=== PATIENT | male | born 1950 | race Caucasian/White ===

== ENCOUNTER 2023-07-22 20:02 | Inpatient (IN) ==
[2023-07-22] MEDS ORDERED: Dextrose 50% Syringe 50 ml 25 GM/50 ML SYRINGE IV PUSH PRN ×2 (20:06→22:44)
[2023-07-22] MEDS ORDERED: Midazolam 5 mg/5 ml VIAL 1 mg/ml 5 ml VIAL (5 mg) ONE (20:18)
[2023-07-22] MEDS ORDERED: fentaNYL 100 mcg/2 ml 50 MCG/ML VIAL ONE (20:18)
[2023-07-22] MEDS: Insulin Infusion 100unit/100mL 100 UNIT/100 ML BAG IV SCH (20:28)
[2023-07-22] MEDS: Heparin DRIP 25,000 UNITS BAG 25,000 UNITS/250 ML BAG IV SCH (20:29)
[2023-07-22 21:02] LABS: ABS Lymphocytes 0.9 10^3/uL (1.0-4.8); ABS Monocytes 0.6 10^3/uL (0.0-1.1); ABS Neutrophils 8.8 10^3/uL (1.5-7.6); ABS Nucleated RBC 0.01 10^3/ul; Eosinophil % 0.1 %; Hematocrit 27.3 % (38-53); Hemoglobin 9.2 g/dL (13.2-16.3); Lymphocyte % 8.4 %; Mean Corpuscular Hemoglobin 31.7 pg (27-33); Mean Corpuscular Hgb Conc 33.6 g/dL (31-36); Mean Corpuscular Volume 94.4 fL (80-97); Mean Platelet Volume 8.1 fL (7.5-11.2); Platelet Count 231 10^3/uL (150-450); Red Blood Count 2.89 10^6/uL (4.06-5.63); Red Cell Distribution Width 14.3 % (12-17); White Blood Count 10.4 10^3/uL (3.6-10.2)
[2023-07-22 21:11] LABS: Creatinine, Serum 3.29 mg/dL (0.67-1.17); eGFR CKD-EPI 19.3 (>60)
[2023-07-22 22:02] LABS: Calcium 6.1 mg/dL (8.6-10.3); Potassium 4.3 mmol/L (3.5-5.0)
[2023-07-22] MEDS: Furosemide 40 mg/4 ml IV VIAL IV SLOW PU ONE (22:09)
[2023-07-22] MEDS: Sodium Bicarb 650 mg (ANTACID) TAB PO SCH (22:09)
[2023-07-22] MEDS: Metoprolol Tartrate 5 mg VIAL 5 ml VIAL (1 mg/ml) IV SCH (22:09)
[2023-07-22] MEDS: Insulin GLARGINE 100 un/ml 10 ml VIAL SUBCUT ONE ×2 (22:35→22:43)
[2023-07-22 22:58] LABS: Venous Bicarbonate HCO3 28.6 mmol/L (24-28)
[2023-07-22] MEDS: CALCIUM GLUCONATE 1GM/50ML NS 1 GM/50 ML BAG IV SCH (23:22)
[2023-07-22] MEDS: Dextrose 50% Syringe 50 ml 25 GM/50 ML SYRINGE IV PUSH PRN (23:23)
[2023-07-23 03:27] LABS: ABS Eosinophils 0.1 10^3/uL (0.0-0.5); ABS Lymphocytes 1.4 10^3/uL (1.0-4.8); ABS Monocytes 0.6 10^3/uL (0.0-1.1); ABS Neutrophils 7.9 10^3/uL (1.5-7.6); Albumin 2.9 g/dL (3.2-5.2); Albumin/Globulin Ratio 1.2 (1-3); Calcium 6.7 mg/dL (8.6-10.3); Creatinine, Serum 3.16 mg/dL (0.67-1.17); Eosinophil % 0.6 %; Globulin 2.4 g/dL (2-4); Hemoglobin 8.5 g/dL (13.2-16.3); Lymphocyte % 13.8 %; Mean Corpuscular Hemoglobin 31.5 pg (27-33); Mean Corpuscular Hgb Conc 34.1 g/dL (31-36); Mean Corpuscular Volume 92.5 fL (80-97); Platelet Count 219 10^3/uL (150-450); Potassium 3.1 mmol/L (3.5-5.0); Red Blood Count 2.71 10^6/uL (4.06-5.63); Red Cell Distribution Width 14.4 % (12-17); Total Bilirubin 0.3 mg/dL (0.2-1.0); Total Protein 5.3 g/dL (6.4-8.9); White Blood Count 9.9 10^3/uL (3.6-10.2); eGFR CKD-EPI 20.2 (>60)
[2023-07-23] MEDS: KCL 20 MEQ/100 ML IVPREMIX 20 MEQ/100 ML BAG IV SCH (05:11)
[2023-07-23] MEDS ORDERED: Metoprolol Tartrate 5 mg VIAL 5 ml VIAL (1 mg/ml) IV PRN (09:43)
[2023-07-23] MEDS: HYDROmorphone 0.5 MG/0.5 ML SYRINGE IV SLOW PU PRN (09:59)
[2023-07-23 10:43] LABS: High Sensitivity Troponin 1 Hr > 24000 pg/mL (<20)
[2023-07-23] MEDS: Heparin 5000 UNITS/ML 1 mL VIAL IV SCH (11:05)
[2023-07-23] MEDS: Potassium Chlor 20 meq TAB.ER PO ONE (11:34)
[2023-07-23] MEDS: HYDROmorphone 0.5 MG/0.5 ML SYRINGE ONE (11:43)
[2023-07-23 15:22] LABS: ABS Basophils 0.1 10^3/uL (0.0-0.1); ABS Eosinophils 0.2 10^3/uL (0.0-0.5); ABS Lymphocytes 2.4 10^3/uL (1.0-4.8); ABS Monocytes 0.8 10^3/uL (0.0-1.1); ABS Neutrophils 9.7 10^3/uL (1.5-7.6); ABS Nucleated RBC 0.01 10^3/ul; Eosinophil % 1.2 %; Hematocrit 24.2 % (38-53); Hemoglobin 8.1 g/dL (13.2-16.3); Lymphocyte % 18.4 %; Mean Corpuscular Hemoglobin 30.9 pg (27-33); Mean Corpuscular Hgb Conc 33.3 g/dL (31-36); Mean Corpuscular Volume 92.9 fL (80-97); Mean Platelet Volume 7.8 fL (7.5-11.2); Nucleated Red Blood Cells % 0.1 %/100WBC (0.0-0.8); Platelet Count 295 10^3/uL (150-450); Red Blood Count 2.61 10^6/uL (4.06-5.63); Red Cell Distribution Width 14.5 % (12-17); White Blood Count 13.1 10^3/uL (3.6-10.2)
[2023-07-23] MEDS ORDERED: ceFAZolin 2 GM in NS PREMIX 2 GM/100 ML BAG IVPB ONE (15:33)
[2023-07-23 15:43] LABS: Calcium 6.8 mg/dL (8.6-10.3); Creatinine, Serum 3.02 mg/dL (0.67-1.17); Potassium 3.9 mmol/L (3.5-5.0); Uric Acid 7.6 mg/dL (4.4-7.6); eGFR CKD-EPI 21.4 (>60)
[2023-07-23] MEDS ORDERED: fentaNYL 250 mcg/5 ml 50 MCG/ML 5 ml VIAL (250 MCG) ONE ×2 (16:10→16:59)
[2023-07-23] MEDS ORDERED: Lidocaine 1% w EPI 1:100,000 MDV 20 ML VIAL ONE (16:12)
[2023-07-23] MEDS ORDERED: Bupivacaine 0.25% SDV 30 ML ONE ×2 (16:12→17:12)
[2023-07-23] MEDS ORDERED: Lidocaine 2% PF 5 ML VIAL ONE (16:12)
[2023-07-23] MEDS ORDERED: Lactulose 30 ml UDC PO PRN (18:31)
[2023-07-23] MEDS ORDERED: Magnesium Hydroxide LIQ 30 ML UDC PO PRN (18:31)
[2023-07-23] MEDS ORDERED: Dextrose 50% Syringe 50 ml 25 GM/50 ML SYRINGE IV PUSH PRN (20:01)
[2023-07-23] MEDS: Magnesium Hydroxide LIQ 30 ML UDC PO SCH (21:22)
[2023-07-23] MEDS: Ondansetron 4 mg VIAL 2 MG/ML 2 ml VIAL IV PRN (22:59)
[2023-07-23] MEDS: Ondansetron 4 mg VIAL 2 MG/ML 2 ml VIAL ONE (23:02)
[2023-07-24] MEDS: ceFAZolin 1 GM ADVAN 1 GM in NS 0.9% 50 ML 50 ML IVPB SCH (01:14)
[2023-07-24 04:51] LABS: ABS Eosinophils 0.1 10^3/uL (0.0-0.5); ABS Lymphocytes 1.5 10^3/uL (1.0-4.8); ABS Monocytes 0.6 10^3/uL (0.0-1.1); ABS Neutrophils 6.7 10^3/uL (1.5-7.6); ABS Nucleated RBC 0.01 10^3/ul; Hematocrit 16.6 % (38-53); Hemoglobin 5.7 g/dL (13.2-16.3); Lymphocyte % 16.8 %; Mean Corpuscular Hemoglobin 32.2 pg (27-33); Mean Corpuscular Hgb Conc 34.2 g/dL (31-36); Nucleated Red Blood Cells % 0.1 %/100WBC (0.0-0.8); Platelet Count 230 10^3/uL (150-450); Red Blood Count 1.77 10^6/uL (4.06-5.63); Red Cell Distribution Width 14.6 % (12-17)
[2023-07-24 04:55] LABS: Creatinine, Serum 3.37 mg/dL (0.67-1.17); eGFR CKD-EPI 18.7 (>60)
[2023-07-24 12:11] LABS: Potassium 4.7 mmol/L (3.5-5.0)
[2023-07-24 12:37] LABS: Magnesium 0.9 mg/dL (1.9-2.7); Phosphorus 4.7 mg/dL (2.5-5.0)
[2023-07-24] MEDS: Magnesium Sulfate 2 gm BAG 2 GM/50 ML BAG IVPB ONE ×2 (13:46→16:03)
[2023-07-24 18:38] LABS: Hematocrit 22.1 % (38-53); Hemoglobin 7.4 g/dL (13.2-16.3); Mean Corpuscular Hemoglobin 29.8 pg (27-33); Mean Corpuscular Hgb Conc 33.7 g/dL (31-36); Mean Corpuscular Volume 88.4 fL (80-97); Mean Platelet Volume 7.9 fL (7.5-11.2); Platelet Count 224 10^3/uL (150-450); White Blood Count 8.8 10^3/uL (3.6-10.2)
[2023-07-24 18:56] LABS: HDL Cholesterol 34.1 mg/dL; Magnesium 2.3 mg/dL (1.9-2.7)
[2023-07-25] MEDS: Furosemide 40 mg/4 ml IV VIAL IV ONE (00:23)
[2023-07-25 02:34] LABS: Hematocrit 22.4 % (38-53); Hemoglobin 7.7 g/dL (13.2-16.3)
[2023-07-25 05:19] LABS: ABS Eosinophils 0.1 10^3/uL (0.0-0.5); ABS Lymphocytes 1.2 10^3/uL (1.0-4.8); ABS Monocytes 0.6 10^3/uL (0.0-1.1); ABS Neutrophils 6.2 10^3/uL (1.5-7.6); ABS Nucleated RBC 0.01 10^3/ul; Eosinophil % 1.2 %; Hematocrit 20.7 % (38-53); Hemoglobin 7.2 g/dL (13.2-16.3); Mean Corpuscular Hemoglobin 29.9 pg (27-33); Mean Corpuscular Volume 85.5 fL (80-97); Mean Platelet Volume 7.8 fL (7.5-11.2); Nucleated Red Blood Cells % 0.1 %/100WBC (0.0-0.8); Platelet Count 174 10^3/uL (150-450); Red Blood Count 2.42 10^6/uL (4.06-5.63); White Blood Count 8.2 10^3/uL (3.6-10.2)
[2023-07-25 05:38] LABS: Calcium 6.3 mg/dL (8.6-10.3); Creatinine, Serum 4.1 mg/dL (0.67-1.17); Magnesium 1.9 mg/dL (1.9-2.7); Potassium 4.6 mmol/L (3.5-5.0); eGFR CKD-EPI 14.8 (>60)
[2023-07-25] MEDS: Aspirin EC 81 mg TAB.EC (enteric coated) PO SCH (08:20)
[2023-07-25 12:22] LABS: Glucose Confirmatory 416 mg/dL (70-100)
[2023-07-25 14:40] LABS: Hematocrit 23.1 % (38-53); Hemoglobin 7.9 g/dL (13.2-16.3)
[2023-07-25] MEDS: Calcium Gluconate 2 GM in NS 0.9% 100 ml BAG 100 ML IVPB ONE (14:54)
[2023-07-25] MEDS: IRON VITAMIN C PO SCH (16:54)
[2023-07-25] MEDS: Insulin GLARGINE 100 un/ml 10 ml VIAL SUBCUT SCH (17:32)
[2023-07-26 00:17] LABS: Hematocrit 24.8 % (38-53); Hemoglobin 8.7 g/dL (13.2-16.3)
[2023-07-26 00:18] LABS: Hematocrit 24.8 % (38-53); Hemoglobin 8.7 g/dL (13.2-16.3)
[2023-07-26 00:31] LABS: Creatinine, Serum 4.05 mg/dL (0.67-1.17); Potassium 4.9 mmol/L (3.5-5.0)
[2023-07-26 04:57] LABS: ABS Eosinophils 0.1 10^3/uL (0.0-0.5); ABS Monocytes 0.5 10^3/uL (0.0-1.1); ABS Neutrophils 4.4 10^3/uL (1.5-7.6); ABS Nucleated RBC 0.02 10^3/ul; Eosinophil % 1.7 %; Hematocrit 24.4 % (38-53); Hemoglobin 8.6 g/dL (13.2-16.3); Lymphocyte % 16.6 %; Mean Corpuscular Hemoglobin 30.2 pg (27-33); Mean Corpuscular Hgb Conc 35.1 g/dL (31-36); Mean Corpuscular Volume 86.1 fL (80-97); Nucleated Red Blood Cells % 0.3 %/100WBC (0.0-0.8); Platelet Count 148 10^3/uL (150-450); Red Blood Count 2.83 10^6/uL (4.06-5.63); Red Cell Distribution Width 16.5 % (12-17)
[2023-07-26 05:14] LABS: Calcium 7.1 mg/dL (8.6-10.3); Creatinine, Serum 3.87 mg/dL (0.67-1.17); Phosphorus 3.9 mg/dL (2.5-5.0); Potassium 4.5 mmol/L (3.5-5.0); eGFR CKD-EPI 15.9 (>60)
[2023-07-26] MEDS: CALCIUM GLUCONATE 1GM/50ML NS 1 GM/50 ML BAG IV SCH (06:21)
[2023-07-26] MEDS: CALCIUM GLUCONATE 1GM/50ML NS 1 GM/50 ML BAG IV ONE (09:45)
[2023-07-26 19:27] LABS: Hematocrit 24.3 % (38-53); Hemoglobin 8.3 g/dL (13.2-16.3)
[2023-07-26] MEDS: Heparin 5000 UNITS/ML 1 mL VIAL SUBCUT SCH (20:29)
[2023-07-27 06:52] LABS: ABS Eosinophils 0.1 10^3/uL (0.0-0.5); ABS Lymphocytes 0.9 10^3/uL (1.0-4.8); ABS Monocytes 0.5 10^3/uL (0.0-1.1); ABS Neutrophils 5.1 10^3/uL (1.5-7.6); Eosinophil % 2.1 %; Hematocrit 25.6 % (38-53); Hemoglobin 8.7 g/dL (13.2-16.3); Lymphocyte % 13.8 %; Mean Corpuscular Hemoglobin 29.8 pg (27-33); Mean Corpuscular Hgb Conc 34.1 g/dL (31-36); Mean Corpuscular Volume 87.2 fL (80-97); Mean Platelet Volume 7.8 fL (7.5-11.2); Nucleated Red Blood Cells % 0.1 %/100WBC (0.0-0.8); Platelet Count 173 10^3/uL (150-450); Red Blood Count 2.93 10^6/uL (4.06-5.63); Red Cell Distribution Width 16.5 % (12-17); White Blood Count 6.8 10^3/uL (3.6-10.2)
[2023-07-27 08:18] LABS: Calcium 7.8 mg/dL (8.6-10.3); Creatinine, Serum 3.34 mg/dL (0.67-1.17); Potassium 4.6 mmol/L (3.5-5.0); eGFR CKD-EPI 18.9 (>60)
[2023-07-27] MEDS: Insulin GLARGINE 100 un/ml 10 ml VIAL SUBCUT SCH (22:30)
[2023-07-28 08:30] LABS: ABS Eosinophils 0.2 10^3/uL (0.0-0.5); ABS Lymphocytes 1.1 10^3/uL (1.0-4.8); ABS Monocytes 0.7 10^3/uL (0.0-1.1); ABS Neutrophils 4.8 10^3/uL (1.5-7.6); ABS Nucleated RBC 0.01 10^3/ul; Eosinophil % 2.3 %; Hemoglobin 8.5 g/dL (13.2-16.3); Lymphocyte % 15.8 %; Mean Corpuscular Hemoglobin 29.9 pg (27-33); Mean Corpuscular Volume 88.1 fL (80-97); Mean Platelet Volume 7.8 fL (7.5-11.2); Nucleated Red Blood Cells % 0.1 %/100WBC (0.0-0.8); Platelet Count 191 10^3/uL (150-450); Red Blood Count 2.84 10^6/uL (4.06-5.63); White Blood Count 6.7 10^3/uL (3.6-10.2)
[2023-07-28 08:48] LABS: Creatinine, Serum 2.8 mg/dL (0.67-1.17); Potassium 4.5 mmol/L (3.5-5.0); eGFR CKD-EPI 23.4 (>60)
[2023-07-30 06:44] LABS: ABS Basophils 0.1 10^3/uL (0.0-0.1); ABS Eosinophils 0.1 10^3/uL (0.0-0.5); ABS Lymphocytes 1.4 10^3/uL (1.0-4.8); ABS Monocytes 0.7 10^3/uL (0.0-1.1); ABS Neutrophils 6.1 10^3/uL (1.5-7.6); Eosinophil % 1.5 %; Hematocrit 24.8 % (38-53); Hemoglobin 8.4 g/dL (13.2-16.3); Lymphocyte % 16.7 %; Mean Corpuscular Hemoglobin 29.9 pg (27-33); Mean Corpuscular Hgb Conc 33.7 g/dL (31-36); Mean Corpuscular Volume 88.6 fL (80-97); Mean Platelet Volume 7.3 fL (7.5-11.2); Platelet Count 217 10^3/uL (150-450); Red Cell Distribution Width 15.9 % (12-17); White Blood Count 8.3 10^3/uL (3.6-10.2)
[2023-07-30 07:02] LABS: Albumin 2.5 g/dL (3.2-5.2); Albumin/Globulin Ratio 0.9 (1-3); Calcium 8.1 mg/dL (8.6-10.3); Creatinine, Serum 2.75 mg/dL (0.67-1.17); Globulin 2.7 g/dL (2-4); Magnesium 1.7 mg/dL (1.9-2.7); Potassium 4.9 mmol/L (3.5-5.0); Total Bilirubin 0.5 mg/dL (0.2-1.0); Total Protein 5.2 g/dL (6.4-8.9); eGFR CKD-EPI 23.9 (>60)
[2023-07-30] MEDS: Magnesium Sulfate IV 1GM/100ML 1 GM/100 ML BAG IV ONE (10:09)
[2023-07-30 14:35] VITALS: BP 126/78
== END 2023-07-30 17:45 | disposition home or self-care (01) | DRG 981 ==
LOC: ED 20:02 → EDHOLD 21:31 → ICU 21:57 → SSU 07-26 18:57 → UNDODISIN 07-27 19:00
PROVIDERS: ADMIT Internal Medicine; ATTEND Internal Medicine Hematology & Oncology